=== PATIENT | female | born 1970 | race African-American/Black ===

== ENCOUNTER 2016-06-11 15:29 | Emergency (ER) | payer MEDICAID, OTHER ==
[~2016-06-11] VITALS: Ht 157.5 cm; Wt 130.2 kg
[~2016-06-11 15:29] MED LIST: ALBUTEROL SULF8.5 GM INH; AZITHROMYCIN250 MG PO; CIPROFLOXACIN500 M2 ORAL; CLONIDINE 0.2M0.2 MG PO; FERROUS SULFAT325 M2 ORAL; FLAGYL500 MG ORAL; HYDROCHLOROTHIA25 MG ORAL; IBUPROFEN600 MG ORAL; KEFLEX500 MG ORAL; LEVAQUIN500 MG ORAL; LISINOPRIL2.5 MG ORAL; METRONIDAZOLE500 MG ORAL; NKM; NORCO 5-325 TA1 EACH ORAL; PHENAZOPYRIDIN200 MG ORAL; PREDNISONE20 MG PO; PROCARDIA XL30 MG PO; PROMETHAZINE-C118 M1 ORAL; TAMIFLU75 MG ORAL; TRAMADOL HCL50 MG ORAL; TYLENOL EXTRA500 MG ORAL; VICODIN 5-5001 EACH PO
[2016-06-11 16:28] VITALS: BP 136/80
[2016-06-11] MEDS ORDERED: Methocarbamol 750mg tab ORAL ONE (16:30)
[2016-06-11] MEDS ORDERED: Ketorolac 30mg Inj IM ONE (16:30)
[2016-06-11] MEDS ORDERED: ROBAXIN-750750 MG PO (16:47)
[2016-06-11] MEDS ORDERED: IBUPROFEN600 MG ORAL (16:47)
[2016-06-11] MEDS ORDERED: TYLENOL EXTRA500 MG ORAL (16:52)
[2016-06-11 16:56] VITALS: BP 136/80
--- NOTE | 2016-06-11 18:58 | Emergency Room Report ---
History of Present Illness General Chief Complaint: Lower Back Pain or Injury Present Illness HPI The patient is a 46-year-old female presenting with lower back pain which began today after the patient changed position from sitting to standing. Patient denies any prior injury to the back. The pain is now described as a 7/10 dull ache it is worse with touch and certain movements such as bending over. Pain does not radiate. The patient has not tried any medications for this. Patient denies any other symptoms including N, V, F, chills, dysuria, abd pain Allergies: Coded Allergies: MORPHINE (Unverified Allergy, Severe, 09/18/14) Patient History Past Medical History: see triage record Pertinent Family History: none Last Menstrual Period: FUll hysterectomy 03/2015 : 4 Para: 4 Reviewed Nursing Documentation: PMH: Agreed, PSxH: Agreed Nursing Documentation-PMH Hx Hypertension: Yes - Hysterectomy 03/2015 Hx Pacemaker: No Hx Asthma: No Hx COPD: No Hx Diabetes: No Hx Gastrointestinal Problems: No Hx Dialysis: No Hx Neurological Problems: No Hx Cerebrovascular Accident: No Hx Seizures: No Hx Dizziness: Yes Hx Headaches: Yes Hx Fatigue: Yes Review of Systems All Other Systems: negative except mentioned in HPI Physical Exam Vital Signs Date Time Temp Pulse Resp B/P Pulse Ox O2 Delivery O2 Flow Rate FiO2 06/11/16 16:09 98.2 70 16 136/80 100 Room Air Sp02 EP Interpretation: reviewed, normal General Appearance: no apparent distress, alert, GCS 15, non-toxic Head: normocephalic, atraumatic Eyes: bilateral eye PERRL, bilateral eye normal inspection ENT: hearing grossly normal, normal pharynx, no angioedema, normal voice Neck: full range of motion, supple/symm/no masses Respiratory: chest non-tender, lungs clear, normal breath sounds, speaking full sentences Musculoskeletal: back normal, gait/station normal, normal range of motion, tender - TTP over bilat lumbar paraspinous muscles Neurologic: alert, oriented x3, responsive, motor strength/tone normal, sensory intact, speech normal Psychiatric: judgement/insight normal, memory normal, mood/affect normal, no suicidal/homicidal ideation Skin: normal color, no rash, warm/dry, well hydrated Lymphatic: no adenopathy Medical Decision Making PA Attestation Dr. Hooper is my supervising physician. Patient management was discussed with my supervising physician Diagnostic Impression: Primary Impression: Muscle strain ER Course The patient is a 46-year-old female presenting with lower back pain which began today after the patient changed position from sitting to standing Ddx considered include but not limited to sprain/strain, fracture, contusion Physical exam: Vitals are within normal limits no apparent distress There is tenderness to palpation over bilateral lumbar paraspinous muscles. No obvious deformity. No midline tenderness. Normal gait Pt given Toradol and robaxin in the ED The patient is given a prescription for tylenol and Robaxin and will followup with PMD. ER precautions are given the patient will use heat therapy at home Last Vital Signs Date Time Temp Pulse Resp B/P Pulse Ox O2 Delivery O2 Flow Rate FiO2 06/11/16 16:56 98.2 16 136/80 100 Room Air 06/11/16 16:28 87 Status: improved Disposition: HOME, SELF-CARE Condition: Improved Scripts Acetaminophen* (TYLENOL EXTRA STRENGTH*) 500 Mg Tablet 500 MG ORAL Q8H Y for Prn Headache/Temp > 101, #30 TAB 0 Refills Prov: JUAN FRANCISCO ORANTES 06/11/16 Methocarbamol* (ROBAXIN-750*) 750 Mg Tablet 750 MG PO TID, #21 TAB 0 Refills Prov: JUAN FRANCISCO ORANTES.A. 06/11/16 Patient Instructions: Back Pain, Adult, Muscle Strain Additional Instructions: I discussed my findings with the patient. All questions and concerns have been answered. Treatment and medication compliance have been addressed. I advised the patient that they need to follow up with PMD in 3-5 days. Return to ED if pain remains or worsens, numbness or tingling occurs, new rash is noticed, fever is noticed, or if needed for any reason. Patient verbalized understanding of discharge instructions. JUAN FRANCISCO ORANTES Jun 11, 2016 18:58
== END 2016-06-11 16:56 | disposition home or self-care (01) ==
LOC: EMR 16:35
DX: T14.8 Other injury of unspecified body region (principal); Z88.6 Allergy status to analgesic agent; Z90.710 Acquired absence of both cervix and uterus; X58.XXXA Exposure to other specified factors, initial encounter; Y92.9 Unspecified place or not applicable; Y99.8 Other external cause status
CPT/HCPCS: 96372; 99284; J1885

== ENCOUNTER 2017-05-12 09:40 | Emergency (ER) | payer MEDICAID, OTHER ==
[~2017-05-12] VITALS: Ht 160 cm; Wt 129.3 kg
[~2017-05-12 09:40] MED LIST changes: +ROBAXIN-750750 MG PO
[2017-05-12] MEDS ORDERED: HYDROmorphone 1mg/ml Carpuject IVP ONE ×2 (10:30→12:45)
[2017-05-12] MEDS ORDERED: Ketorolac 30mg Inj IV ONE ×2 (10:30→13:30)
[2017-05-12 10:47] LABS: BASOPHILS % (AUTO) 0.9 % (0.0-2.0); EOSINOPHILS % (AUTO) 0.1 % (0.0-3.0); LYMPHOCYTES % (AUTO) 12.2 % (20.0-45.0); MEAN CORPUSCULAR VOLUME 80 FL (80-99); NEUTROPHILS % (AUTO) 80.7 % (45.0-75.0); PLATELET COUNT 400 K/UL (150-450); RED BLOOD COUNT 5.64 M/UL (4.20-5.40); RED CELL DISTRIBUTION WIDTH 13.9 % (11.6-14.8); WHITE BLOOD COUNT 11.8 K/UL (4.8-10.8)
[2017-05-12 11:04] LABS: ANION GAP 10 mmol/L (5-15); BLOOD UREA NITROGEN 19 mg/dL (7-18); CARBON DIOXIDE 28 MMOL/L (21-32); CHLORIDE 99 MMOL/L (98-107); CREATININE 1.8 MG/DL (0.55-1.30); POTASSIUM 3.7 MMOL/L (3.5-5.1); SODIUM 137 MMOL/L (136-145)
[2017-05-12 11:09] LABS: ALANINE AMINOTRANSFERASE 18 U/L (12-78); ALBUMIN 4.2 G/DL (3.4-5.0); ALKALINE PHOSPHATASE 103 U/L (46-116); ASPARTATE AMINO TRANSFERASE 19 U/L (15-37); BILIRUBIN,TOTAL 0.7 MG/DL (0.2-1.0)
[2017-05-12 12:08] LABS: APPEARANCE,URINE SLIGHTLY CLOUDY; BILIRUBIN, URINE NEGATIVE (NEGATIVE); COLOR,URINE PALE YELLOW; GLUCOSE, URINE (UA) NEGATIVE (NEGATIVE); KETONES,URINE NEGATIVE (NEGATIVE); LEUKOCYTE ESTERASE ,URINE NEGATIVE (NEGATIVE); NITRITE,URINE NEGATIVE (NEGATIVE); PH,URINE 5 (4.5-8.0); PROTEIN,URINE 1+ (NEGATIVE); UROBILINOGEN,URINE NORMAL MG/DL (0.0-1.0)
--- NOTE | 2017-05-12 15:24 | Emergency Room Report ---
History of Present Illness General Chief Complaint: Lower Extremity Injury Source: Patient Present Illness HPI Patient came off of stool and landed on L knee. Had pain there, but had been able to ambulate until last night. Then pain became severe and knee became swollen. Now unable to ambulate. believe she had injured it in the past, but she doesn't remember this. No fevers. No meds taken. Pain rated 10/10 , aching and burning. 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 No calf swelling, edema, hip pain. Allergies: Coded Allergies: MORPHINE (Unverified Allergy, Severe, 09/18/14) Patient History Past Medical History: see triage record Past Surgical History: hysterectomy Social History: Denies: smoking Social History Narrative Last Menstrual Period: Hyst Reviewed Nursing Documentation: PMH: Agreed, PSxH: Agreed Nursing Documentation-PMH Hx Hypertension: Yes Hx Pacemaker: No Hx Asthma: No Hx COPD: No Hx Diabetes: No Hx Gastrointestinal Problems: No Hx Dialysis: No Hx Neurological Problems: No Hx Cerebrovascular Accident: No Hx Seizures: No Hx Dizziness: Yes Hx Headaches: Yes Hx Fatigue: Yes Review of Systems All Other Systems: negative except mentioned in HPI Physical Exam Vital Signs Date Time Temp Pulse Resp B/P (MAP) Pulse Ox O2 Delivery O2 Flow Rate FiO2 05/12/17 10:00 99.7 104 10 95 Room Air Sp02 EP Interpretation: reviewed, normal General Appearance: alert, GCS 15, mild distress, obese Head: normocephalic Eyes: bilateral eye normal inspection, bilateral eye PERRL ENT: moist mucus membranes Neck: supple Respiratory: lungs clear, normal breath sounds Cardiovascular #1: regular rate, rhythm Cardiovascular #2: 2+ radial (R) Gastrointestinal: normal inspection, normal bowel sounds, non tender, no mass, non-distended, overweight Musculoskeletal: back normal, decreased range of motion - all directions minimal flexion. Minimally able to lift off of gurney, Luc's Sign negative, inflammation, swelling, other - ligaments stable, tender Neurologic: alert, oriented x3 Skin: normal inspection, warm/dry, other - min warmth over knee, no erythema Medical Decision Making Diagnostic Impression: Primary Impression: Acute gout Qualified Codes: M10.9 - Gout, unspecified Additional Impressions: Renal insufficiency BMI 50.0-59.9, adult ER Course Patient with increased L knee pain after trauma, but initially able to ambulate for 2 days. Differential: strain, aprain, meniscus injury, gout. Based on exam , doubt cellulitis. Evaluation with x-rays, labs including uric acid. Will focus on analgesia. Repeat analgesia as still with pain. After dx of gout, toradol and colchicine given. Much improved analgesia. Knee immobilizer applied by tech. Excellent position and neurovasc checked by me and normal. Able to ambulate with crutches. Patient stable for outpatient observation and treatment. Laboratory Tests Test 05/12/17 10:09 05/12/17 11:20 White Blood Count 11.8 K/UL (4.8-10.8) H Red Blood Count 5.64 M/UL (4.20-5.40) H Hemoglobin 14.0 G/DL (12.0-16.0) Hematocrit 45.0 % (37.0-47.0) Mean Corpuscular Volume 80 FL (80-99) Mean Corpuscular Hemoglobin 24.9 PG (27.0-31.0) L Mean Corpuscular Hemoglobin Concent 31.2 G/DL (32.0-36.0) L Red Cell Distribution Width 13.9 % (11.6-14.8) Platelet Count 400 K/UL (150-450) Mean Platelet Volume 6.7 FL (6.5-10.1) Neutrophils (%) (Auto) 80.7 % (45.0-75.0) H Lymphocytes (%) (Auto) 12.2 % (20.0-45.0) L Monocytes (%) (Auto) 6.0 % (1.0-10.0) Eosinophils (%) (Auto) 0.1 % (0.0-3.0) Basophils (%) (Auto) 0.9 % (0.0-2.0) Erythrocyte Sedimentation Rate 7 MM/HR (0-20) Prothrombin Time 10.0 SEC (9.30-11.50) Prothrombin Time INR 1.0 (0.9-1.1) PTT 31 SEC (23-33) Sodium Level 137 MMOL/L (136-145) Potassium Level 3.7 MMOL/L (3.5-5.1) Chloride Level 99 MMOL/L (98-107) Carbon Dioxide Level 28 MMOL/L (21-32) Anion Gap 10 mmol/L (5-15) Blood Urea Nitrogen 19 mg/dL (7-18) H Creatinine 1.8 MG/DL (0.55-1.30) H Estimate Glomerular Filtration Rate 36.2 mL/min (>60) Glucose Level 110 MG/DL (74-106) H Uric Acid 8.1 MG/DL (2.6-7.2) H Calcium Level 10.0 MG/DL (8.5-10.1) Total Bilirubin 0.7 MG/DL (0.2-1.0) Aspartate Amino Transferase (AST) 19 U/L (15-37) Alanine Aminotransferase (ALT) 18 U/L (12-78) Alkaline Phosphatase 103 U/L (46-116) Total Protein 8.6 G/DL (6.4-8.2) H Albumin 4.2 G/DL (3.4-5.0) Globulin 4.4 g/dL Albumin/Globulin Ratio 1.0 (1.0-2.7) Urine Color Pale yellow Urine Appearance Slightly cloudy Urine pH 5 (4.5-8.0) Urine Specific [place] 1.015 (1.005-1.035) Urine Protein 1+ (NEGATIVE) H Urine Glucose (UA) Negative (NEGATIVE) Urine Ketones Negative (NEGATIVE) Urine Occult Blood Negative (NEGATIVE) Urine Nitrite Negative (NEGATIVE) Urine Bilirubin Negative (NEGATIVE) Urine Urobilinogen Normal MG/DL (0.0-1.0) Urine Leukocyte Esterase Negative (NEGATIVE) Urine RBC 0-2 /HPF (0 - 2) Urine WBC 0 /HPF (0 - 2) Urine Squamous Epithelial Cells Few /LPF (NONE/OCC) Urine Bacteria None /HPF (NONE) Other X-Ray Diagnostic Results Other X-Ray Diagnostic Results : X-Ray ordered: L knee # of Views/Limited Vs Complete: 3 View Indication: Pain EP Interpretation: Yes Interpretation: no dislocation, no fractures, other - effusion Impression: Other Electronically Signed by: Edin Kidd MD Last Vital Signs Date Time Temp Pulse Resp B/P (MAP) Pulse Ox O2 Delivery O2 Flow Rate FiO2 05/12/17 15:40 99.6 78 16 138/68 97 Room Air Status: improved Disposition: HOME, SELF-CARE Condition: Improved Scripts Indomethacin (INDOMETHACIN) 25 Mg Capsule 25 MG PO Q8HR Y for gout pain, #20 CAP Prov: Edin Kidd M.D. 05/12/17 Hydrocodone Bit/Acetaminophen 5-325* (NORCO 5-325*) 1 Each Tablet 1 TAB ORAL Q6H Y for For Pain, #16 TAB 0 Refills Prov: Edin Kidd M.D. 05/12/17 Colchicine (Colchicine) 0.6 Mg Capsule 0.6 MG PO Q6HR Y for gout pain, #20 CAP 1 Refill Prov: Edin Kidd M.D. 05/12/17 Referrals: [facility],REFERRING (PCP) Edin Kidd M.D. May 12, 2017 15:24
[2017-05-12] MEDS ORDERED: COLCHICINE0.6 M1 PO (15:28)
[2017-05-12] MEDS ORDERED: INDOMETHACIN25 MG PO (15:28)
[2017-05-12] MEDS ORDERED: NORCO 5-325 TA1 EACH ORAL (15:28)
[2017-05-12 15:40] VITALS: BP 138/68
--- NOTE | 2017-05-12 16:16 | Diagnostic Imaging Report ---
Indication: Reason For Exam: PAIN Technique: 3 views of the left knee Comparison: None Findings: Is a large suprapatellar effusion, which elevates the patella somewhat. No acute fractures. No dislocations. The joint spaces are preserved. Impression: Large joint effusion No acute bony trauma
== END 2017-05-12 15:40 | disposition home or self-care (01) ==
LOC: EMR 10:25
DX: M10.9 Gout, unspecified (principal); N28.9 Disorder of kidney and ureter, unspecified; M25.462 Effusion, left knee; I10 Essential (primary) hypertension; Z88.5 Allergy status to narcotic agent
CPT/HCPCS: 36415; 73562; 80053; 81003; 84550; 85025; 85610; 85651; 85730; 96374; 96375; 96376; 99284; J1170; J1885; J2405

== ENCOUNTER 2018-08-16 16:57 | Emergency (ER) | payer OTHER ==
[~2018-08-16] VITALS: Ht 160 cm; Wt 145.1 kg
[~2018-08-16 16:57] MED LIST changes: +COLCHICINE0.6 M1 PO; +INDOMETHACIN25 MG PO
[2018-08-16] MEDS ORDERED: AMLODIPINE BES2.5 MG ORAL (17:08)
[2018-08-16] MEDS ORDERED: ZANTAC150 MG ORAL (17:08)
[2018-08-16 17:13] VITALS: BP 130/49
--- NOTE | 2018-08-16 17:14 | NUR ---
ED Nurse Note: Patient walked in to ER from home c/o lower back pain 01/14 started on . pt aao x4 and ambulatory but weak gait due to severe pain. pt denied changing on urination or N/V/D. per pt, she has never had back pain this severe even when she had 4 children. denied injury or trauma. skin clean and intact.
--- NOTE | 2018-08-16 17:17 | Emergency Room Report ---
History of Present Illness General Chief Complaint: Back Pain-No Injury Present Illness HPI 48-year-old female presents to the emergency department complaining of 10 out of 10 in severity low back back pain that is primarily on the right side x 3 days. progressive onset of tightness s/p cooking all day 3 days ago. She reports a certain movements she does have some radiation down the right buttock. Patient reports history of back pain in the past states that her pain has not resolved with normal OTC medications. Patient states she also tried [place] with no relief. Patient denies trauma or fall she denies recent spinal procedures or history of cancer. Denies numbness tingling or loss of sensation or gross motor movements of the extremities, incontinence of bowel or bladder. Denies CP, Palpitations, LOC, AMS, dizziness, Changes in Vision, weakness or a sudden severe headache. Denies urinary frequency, urgency, dysuria or hematuria. Denies N/V. Denies CORREA or abdominal pain. Reports difficulty in finding a POC. no modifying factors, she also reports no relief with heat pads. Allergies: Coded Allergies: MORPHINE (Unverified Allergy, Severe, 09/18/14) Patient History Past Medical History: see triage record, HTN Past Surgical History: other - hysterectomy Last Menstrual Period: 2016 Now: No Reviewed Nursing Documentation: PMH: Agreed; PSxH: Agreed Nursing Documentation-PMH Hx Hypertension: Yes Hx Pacemaker: No Hx Asthma: No Hx COPD: No Hx Diabetes: No Hx Gastrointestinal Problems: No Hx Dialysis: No Hx Neurological Problems: No Hx Cerebrovascular Accident: No Hx Seizures: No Hx Dizziness: Yes Hx Headaches: Yes Hx Fatigue: Yes Review of Systems All Other Systems: negative except mentioned in HPI Physical Exam Vital Signs Date Time Temp Pulse Resp B/P (MAP) Pulse Ox O2 Delivery O2 Flow Rate FiO2 08/16/18 17:03 99.0 92 16 95 08/16/18 17:13 130/49 Sp02 EP Interpretation: reviewed, normal General Appearance: no apparent distress, alert, GCS 15, non-toxic, obese Head: normocephalic, atraumatic Eyes: bilateral eye normal inspection, bilateral eye PERRL ENT: hearing grossly normal, normal voice Neck: full range of motion, no bony tend Respiratory: lungs clear, normal breath sounds, speaking full sentences Cardiovascular #1: regular rate, rhythm Gastrointestinal: non tender, soft Genitourinary: normal inspection, no CVA tenderness Musculoskeletal: back normal, gait/station normal, normal range of motion, tender - Mild Tenderness to palpation to right paraspinal muscles of the lower back without midline tenderness.no step-offs, no obvious deformities. Neurologic: alert, oriented x3, responsive, motor strength/tone normal, sensory intact, normal gait, speech normal, grossly normal Psychiatric: judgement/insight normal Skin: normal color, no rash, warm/dry, well hydrated Medical Decision Making PA Attestation Dr. Briseno is my supervising Physician whom patient management has been discussed with. Diagnostic Impression: Primary Impression: Back pain Qualified Codes: M54.41 - Lumbago with sciatica, right side ER Course 48-year-old female presents to the emergency department complaining of 10 out of 10 in severity low back back pain that is primarily on the right side x 3 days. progressive onset of tightness s/p cooking all day 3 days ago. She reports a certain movements she does have some radiation down the right buttock. Patient reports history of back pain in the past states that her pain has not resolved with normal OTC medications. Patient states she also tried [place] with no relief. Patient denies trauma or fall she denies recent spinal procedures or history of cancer. Denies numbness tingling or loss of sensation or gross motor movements of the extremities, incontinence of bowel or bladder. Denies CP, Palpitations, LOC, AMS, dizziness, Changes in Vision, weakness or a sudden severe headache. Denies urinary frequency, urgency, dysuria or hematuria. Denies N/V. Denies CORREA or abdominal pain. Reports difficulty in finding a POC. no modifying factors, she also reports no relief with heat pads. Ddx considered: epidural abscess, fracture, sprain/strain, meningitis, spinal chord injury, sciatica, cauda equina, Pyelonephritis, renal calculi just to name a few. Vital signs reviewed and are WNL during ED visit. Pt. is afebrile with no signs of infection No new symptoms, and denies recent trauma. No saddle anesthesia noted, Pt. denies incontinence Neurovascular is intact ROM is limited due to pain * Mild Tenderness to palpation to right paraspinal muscles of the lower back without midline tenderness.no step-offs, no obvious deformities. *Pt. describes pain today as moderate and radiates across the lower back. ORDERS: UA- unremarkable INTERVENTIONS: - IM Toradol -Soma po -Lidoderm TP -I do not identify an emergent condition at this time. With current presentation , pt. is stable for close outpatient follow up and conservative treatment. D/ w pt. to return promptly to ED with worsening or new symptoms.- Pt. verbalizes' understanding and agreement with proposed treatment plan.proposed treatment plan. DISCHARGE: At this time pt. is stable for d/c to home. Will provide printed patient care instructions, and any necessary prescriptions. Care plan and follow up instructions have been discussed with the patient prior to discharge. Labs Test 08/16/18 17:20 Urine Color Pale yellow Urine Appearance Clear Urine pH 5 (4.5-8.0) Urine Specific [place] 1.020 (1.005-1.035) Urine Protein Negative (NEGATIVE) Urine Glucose (UA) Negative (NEGATIVE) Urine Ketones Negative (NEGATIVE) Urine Blood Negative (NEGATIVE) Urine Nitrite Negative (NEGATIVE) Urine Bilirubin Negative (NEGATIVE) Urine Urobilinogen Normal MG/DL (0.0-1.0) Urine Leukocyte Esterase Negative (NEGATIVE) Last Vital Signs Date Time Temp Pulse Resp B/P (MAP) Pulse Ox O2 Delivery O2 Flow Rate FiO2 08/16/18 17:13 99.0 75 16 130/49 96 Disposition: HOME, SELF-CARE Condition: Stable Scripts Tramadol Hcl* (ULTRAM*) 50 Mg Tablet 50 MG ORAL Q6H PRN for For Pain, #6 TAB 0 Refills Prov: Flaca Palmer 08/16/18 Lidocaine (Lidoderm) 1 Each Adh..patch 1 PATCH TOPIC DAILY, #30 PATCH 0 Refills Patch(es) may remain in place for up to 12 hours in any 24-hour period. Prov: Flaca Palmer 08/16/18 Methocarbamol* (ROBAXIN-750*) 750 Mg Tablet 750 MG PO QID, #28 TAB 0 Refills Prov: Flaca Palmer 08/16/18 Patient Instructions: Back Pain, Adult, Muscle Cramps and Spasms, [id number] Additional Instructions: Take medications as directed. Follow up with a Primary Care Provider in 3-5 days, even if your symptoms have resolved. --Please review list of primary care clinics, if you do not already have a primary care provider Return sooner to ED if new symptoms occur, or current symptoms become worse. Do not drink alcohol, drive, or operate heavy machinery while taking Robaxin ( Muscle Relaxers) as this may cause drowsiness. - Please note that this Emergency Department Report was dictated using [employer] pong table assembler technology software, occasionally this can lead to erroneous entry secondary to interpretation by the dictation equipment. Flaca Palmer August 16, 2018 17:17
[2018-08-16 17:35] LABS: BILIRUBIN, URINE NEGATIVE (NEGATIVE); COLOR,URINE PALE YELLOW; GLUCOSE, URINE (UA) NEGATIVE (NEGATIVE); KETONES,URINE NEGATIVE (NEGATIVE); LEUKOCYTE ESTERASE ,URINE NEGATIVE (NEGATIVE); NITRITE,URINE NEGATIVE (NEGATIVE); PH,URINE 5 (4.5-8.0); PROTEIN,URINE NEGATIVE (NEGATIVE); UROBILINOGEN,URINE NORMAL MG/DL (0.0-1.0)
[2018-08-16 17:38] LABS: APPEARANCE,URINE CLEAR
[2018-08-16] MEDS ORDERED: Ketorolac 30mg Inj IM ONE (17:45)
[2018-08-16] MEDS ORDERED: TRAMADOL HCL50 MG ORAL (18:11)
[2018-08-16] MEDS ORDERED: LIDODERM700 M1 TOPIC (18:11)
[2018-08-16] MEDS ORDERED: ROBAXIN-750750 MG PO (18:11)
[2018-08-16 18:17] VITALS: BP 141/55
--- NOTE | 2018-08-16 18:18 | NUR ---
ER DISCHARGE NOTE: Patient is cleared to be discharged per ERPA, pt is aox4, on room air, with stable vital signs. pt was given dc and prescription instructions, pt was able to verbalize understanding, pt id band removed. pt is able to ambulate with steady gait. pt took all belongings.
== END 2018-08-16 18:19 | disposition home or self-care (01) ==
LOC: EMR 17:28
DX: M54.41 Lumbago with sciatica, right side (principal); Z88.6 Allergy status to analgesic agent; I10 Essential (primary) hypertension; Z90.710 Acquired absence of both cervix and uterus; E66.9 Obesity, unspecified; Z68.43 Body mass index [BMI] 50.0-59.9, adult
CPT/HCPCS: 81003; 96372; 99283; J1885